=== PATIENT | male | born 1985 | race Caucasian/White ===

== ENCOUNTER 2017-10-29 00:08 | Emergency (ER) | payer BC ==
[~2017-10-29] VITALS: Ht 165.1 cm; Wt 92.5 kg
[2017-10-29 00:11] VITALS: Ht 165.1 cm; Wt 92.5 kg
[2017-10-29 04:36] VITALS: BP 131/78
== END 2017-10-29 04:36 | disposition home or self-care (01) ==
LOC: ED 00:08
DX: T15.02XA Foreign body in cornea, left eye, initial encounter (principal); X58.XXXA Exposure to other specified factors, initial encounter; Y93.89 Activity, other specified; Y92.89 Other specified places as the place of occurrence of the external cause; Y99.8 Other external cause status